=== PATIENT | male | born 1995 | race African-American/Black ===

== ENCOUNTER 2021-04-15 07:37 | Inpatient (IN) | payer OTHER ==
[2021-04-15] MEDS ORDERED: Lorazepam 2 MG/ML VIAL ONE (08:06)
[2021-04-15 08:21] LABS: Mean Corpuscular HGB CONC 32.8 g/dL (32.0-36.0); Mean Corpuscular Hemoglobin 26.6 pg (27.0-33.0); Mean Corpuscular Volume 81.3 fl (81.2-95.1); Mean Platelet Volume 10.1 fl (7.4-10.4); Platelet Count 290 10x3/uL (150-450); RBC Distribution Width 12.8 % (11.5-14.5); Red Blood Cell (RBC) Count 5.63 10x6/uL (4.32-5.72); White Blood Cell (WBC) Count 10.2 10x3/uL (3.5-10.5)
[2021-04-15 08:22] LABS: MDiff Complete? YES
[2021-04-15 08:38] LABS: ALT (SGPT) 13 U/L (8-55); AST (SGOT) 16 U/L (5-34); Albumin 4.4 g/dL (3.5-5.0); Alkaline Phosphatase 87 U/L (40-110); Anion Gap 28 mmol/L (10-20); BUN (Urea Nitrogen) 10 mg/dL (8.9-20.6); Bilirubin, Total 0.6 mg/dL (0.2-1.2); CK (CPK) 260 U/L (30-200); Calc. Creatinine Clearance 0 mL/min (70-130); Chloride 106 mmol/L (98-107); Globulin 3.3 g/dL (2.4-3.5); Glucose 191 mg/dL (70-105); Potassium 3.7 mmol/L (3.5-5.1); Protein, Total 7.7 g/dL (6.0-8.3); Sodium 139 mmol/L (136-145)
[2021-04-15 08:41] LABS: Eosinophils 3 % (0-10); Lymphocytes 55 % (21-51); Monocytes 9 % (0-10); Neutrophil 31 % (42-75)
[2021-04-15 08:42] LABS: Band 2 % (5-11); Carbon Dioxide 9 mmol/L (22-29)
[2021-04-15 08:43] LABS: Platelet Morphology Comment Appears Adequate
[2021-04-15 08:45] LABS: RBC Morphology Normal
[2021-04-15] MEDS ORDERED: Cefepime 2 GM VIAL ONE (09:00)
[2021-04-15] MEDS ORDERED: Vancomycin HCl 500 MG VIAL ONE ×2 (09:01→10:38)
[2021-04-15 09:07] LABS: Actual Bicarbonate (HCO3v) 19 mEq/L (22-28); Base Excess -6.8 mEq/L (-2.0 to +3.0); Calcium, Ionized (venous) 1.15 mmol/L (1.16-1.32); Chloride (VBG) 107 mmol/L (98-106); Hemoglobin (Hb) 15.5 g/dL (13.2-17.3); Puncture Site Other Site; Sodium 136.2 mmol/L (133-146)
[2021-04-15] MEDS ORDERED: levETIRAcetam in NS 100 ML ONE (09:43)
[2021-04-15] MEDS ORDERED: Ondansetron PF 4 MG/2 ML Vial IVP PRN (10:41)
[2021-04-15] MEDS ORDERED: Acetaminophen 650 MG Suppository PR PRN (10:41)
[2021-04-15] MEDS ORDERED: Acetaminophen 325 MG TAB PO PRN (10:41)
[2021-04-15] MEDS ORDERED: Ondansetron ODT 4 MG TAB PO PRN (10:41)
[2021-04-15 11:09] LABS: Anion Gap 7 mmol/L (10-20); BUN (Urea Nitrogen) 9 mg/dL (8.9-20.6); Calc. Creatinine Clearance 0 mL/min (70-130); Calcium 7.6 mg/dL (7.8-10.44); Carbon Dioxide 23 mmol/L (22-29); Chloride 114 mmol/L (98-107); Glucose 104 mg/dL (70-105); Potassium 3.3 mmol/L (3.5-5.1); Sodium 141 mmol/L (136-145)
[2021-04-15 11:12] LABS: Bilirubin Neg (Negative); Blood, Urine 25 (Negative); Clarity Clear (Clear); Glucose, Urine (Dipstick) Normal (Negative); Ketone, Urine Negative (Negative); Leukocyte Negative (Negative); Nitrite Negative (Negative); Protein, Urine (Dipstick) 15 mg/dl (Neg-Trace); Specific Gravity, Urine 1.015 (1.002-1.036); Urobilinogen Normal mg/dL (Less than 2)
[2021-04-15 11:27] LABS: Bacteria/HPF None Seen HPF (None Seen); RBC/HPF 0-3 HPF (0-3); Squamous Epithelial None Seen HPF (0-3); WBC/HPF None Seen HPF (0-3)
[2021-04-15 11:35] LABS: Lactic Acid 1.7 mmol/L (0.5-2.2)
[2021-04-15] MEDS: Sodium Chloride 0.9% 1,000 ML IV SCH ×2 (15:30→20:39)
[2021-04-15 16:51] VITALS: BMI 22.1
[2021-04-15] MEDS: levETIRAcetam in NS 1,000 MG in Premix Bag 1 BAG IVPB SCH (20:38)
[2021-04-15 22:11] LABS: SARS-CoV-2 NAA Rapid Test Not Detected (NotDetected)
[2021-04-16] MEDS: Sodium Chloride 0.9% 1,000 ML IV SCH ×2 (01:56→13:52)
[2021-04-16 04:33] LABS: #Eosinphils 0.2 10x3/uL (0.0-0.5); #Monocytes 0.4 10x3/uL (0.0-1.1); #Neutrophils 3.9 10x3/uL (1.5-8.4); %Basophils 0.5 % (0.0-2.0); %Eosinophils 2.3 % (0.0-6.0); %Lymphocytes 31.8 % (18.0-47.0); %Monocytes 5.7 % (0.0-10.0); %Neutrophils 59.2 % (40.0-75.0); Hemoglobin 12.3 g/dL (13.5-17.5); Mean Corpuscular HGB CONC 33.4 g/dL (32.0-36.0); Mean Corpuscular Hemoglobin 26.5 pg (27.0-33.0); Mean Corpuscular Volume 79.1 fl (81.2-95.1); Mean Platelet Volume 10.2 fl (7.4-10.4); Platelet Count 222 10x3/uL (150-450); RBC Distribution Width 12.9 % (11.5-14.5); Red Blood Cell (RBC) Count 4.65 10x6/uL (4.32-5.72); White Blood Cell (WBC) Count 6.6 10x3/uL (3.5-10.5)
[2021-04-16 04:34] LABS: Anion Gap 10 mmol/L (10-20); BUN (Urea Nitrogen) 10 mg/dL (8.9-20.6); Calc. Creatinine Clearance 98 mL/min (70-130); Calcium 8.2 mg/dL (7.8-10.44); Carbon Dioxide 23 mmol/L (22-29); Chloride 113 mmol/L (98-107); Glucose 97 mg/dL (70-105); Potassium 4.3 mmol/L (3.5-5.1); Sodium 142 mmol/L (136-145)
[2021-04-16] MEDS: levETIRAcetam in NS 1,000 MG in Premix Bag 1 BAG IVPB SCH (08:28)
[2021-04-16 15:56] VITALS: BP 147/92; TEMP 98.4
== END 2021-04-16 16:00 | disposition home or self-care (01) | DRG 101 ==
LOC: CSHERS 07:37 → CSHERHOLD 09:20 → CSHTELE 15:22
PROVIDERS: ADMIT Hospitalist; ATTEND Hospitalist
DX: G40.909 Epilepsy, unspecified, not intractable, without status epilepticus (principal); F84.0 Autistic disorder; E87.2 Acidosis; N17.9 Acute kidney failure, unspecified; R73.9 Hyperglycemia, unspecified; Z20.822 Contact with and (suspected) exposure to COVID-19; Z79.899 Other long term (current) drug therapy
CPT/HCPCS: 36415; 70450; 70551; 71045; 80048; 80053; 81003; 81015; 82010; 82550; 82805; 83605; 84146; 84484; 85025; 87040; 87086; 93005; 93010; 94760; J0692; J1953; J2060; J3370; J7050; U0002

== ENCOUNTER 2021-05-16 15:55 | Emergency (ER) | payer OTHER | END 2021-05-16 16:17 | disposition home or self-care (01) | LOC: CSHERS 15:55 | DX: R56.9 Unspecified convulsions (principal); Z87.820 Personal history of traumatic brain injury | CPT/HCPCS: 99281 ==

== ENCOUNTER 2023-11-05 12:04 | Emergency (ER) | payer OTHER | END 2023-11-05 12:55 | disposition home or self-care (01) | LOC: CSHERS 12:04 | DX: Z76.0 Encounter for issue of repeat prescription (principal) | CPT/HCPCS: 99281 ==